=== PATIENT | male | born 1990 | race Caucasian/White ===

== ENCOUNTER 2020-08-28 19:10 | Emergency (ER) | payer OTHER ==
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
--- NOTE | 2020-08-28 20:03 | XR ---
EXAMINATION TYPE: XR chest 1V portable DATE OF EXAM: 08/28/2020 COMPARISON: NONE HISTORY: Pain TECHNIQUE: Single view FINDINGS: Heart and mediastinum are normal. Lungs are clear. Diaphragm is normal. Bony thorax is inta ct. IMPRESSION: Normal chest
--- NOTE | 2020-08-28 20:04 | XR ---
EXAMINATION TYPE: XR pelvis AP view DATE OF EXAM: 08/28/2020 COMPARISON: NONE HISTORY: Pain TECHNIQUE: Single view FINDINGS: Pelvic ring is intact. Proximal femurs and hip joints are intact. Sacroiliac joints appear normal. IMPRESSION: Normal pelvis
[2020-08-28 20:07] VITALS: BP 110/64; PULSE 98; RESP 16; TEMP 99.2
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
== END 2020-08-28 20:30 | disposition home or self-care (01) ==
LOC: EC 19:10
DX: S22.080A Wedge compression fracture of T11-T12 vertebra, initial encounter for closed fracture (principal); V23.4XXA Motorcycle driver injured in collision with car, pick-up truck or van in traffic accident, initial encounter; Y92.89 Other specified places as the place of occurrence of the external cause
CPT/HCPCS: 71045; 72131; 72170; 99285